=== PATIENT | male | born 1980 | race African-American/Black ===

== ENCOUNTER 2020-04-07 03:08 | Emergency (ER) | payer OTHER ==
[~2020-04-07] VITALS: Ht 177.8 cm; Wt 113.4 kg
--- NOTE | 2020-04-07 03:13 | NUR ---
ED Nurse Note: pt CLARA [employer] 69 in police custody for trespassing. per EMS, pt was agitated and delirious so they gave him 5 of versed. pt presents to ED sedated, appears to be sleeping with [employer] at bedside. officer Frank block # [id number]
--- NOTE | 2020-04-07 03:18 | NUR ---
ED Nurse Note: pt satting at 89% on RA, placed on 2L NC O2
[2020-04-07 03:20] VITALS: BP 112/70
--- NOTE | 2020-04-07 03:42 | NUR ---
ED Nurse Note: pt appears to be asleep in bed, eyes are closed, breathing is even and non-labored. no acute distress is noted at this time. VSS on cardiac exercise physiologist
[2020-04-07 03:45] LABS: BASOPHILS % (AUTO) 0.7 % (0.0-2.0); EOSINOPHILS % (AUTO) 0.2 % (0.0-3.0); HEMATOCRIT 39.4 % (42.0-52.0); HEMOGLOBIN 13.6 G/DL (14.2-18.0); LYMPHOCYTES % (AUTO) 9.4 % (20.0-45.0); MEAN CORPUSCULAR VOLUME 75 FL (80-99); MONOCYTES % (AUTO) 8.8 % (1.0-10.0); NEUTROPHILS % (AUTO) 80.9 % (45.0-75.0); PLATELET COUNT 184 K/UL (150-450); RED BLOOD COUNT 5.23 M/UL (4.70-6.10); RED CELL DISTRIBUTION WIDTH 12.3 % (11.6-14.8); WHITE BLOOD COUNT 8.7 K/UL (4.8-10.8)
[2020-04-07 03:56] LABS: ANION GAP 14 mmol/L (5-15); BLOOD UREA NITROGEN 14 mg/dL (7-18); CALCIUM 8.3 MG/DL (8.5-10.1); CARBON DIOXIDE 23 MMOL/L (21-32); CHLORIDE 107 MMOL/L (98-107); CREATININE 1.6 MG/DL (0.55-1.30); POTASSIUM 3.2 MMOL/L (3.5-5.1); SODIUM 144 MMOL/L (136-145)
[2020-04-07 04:00] LABS: ALANINE AMINOTRANSFERASE 23 U/L (12-78); ALBUMIN 3.6 G/DL (3.4-5.0); ALBUMIN/GLOBULIN RATIO 1.1 (1.0-2.7); ALKALINE PHOSPHATASE 78 U/L (46-116); ASPARTATE AMINO TRANSFERASE 37 U/L (15-37); BILIRUBIN,TOTAL 0.7 MG/DL (0.2-1.0)
--- NOTE | 2020-04-07 04:19 | Emergency Room Report ---
History of Present Illness General Chief Complaint: Medical Clearance Source: EMS, Law Enforcement (Gaston Lomeli MD) Present Illness HPI Unidentified male presents for behavioral evaluation. In police custody. Was combative and agitated and was given Versed by EMS. On arrival patient is sleeping. No signs of distress. No reported SI or HI. Unable to provide any additional history at this time. No other aggravating relieving factors. No other associated symptoms (Gaston Lomeli MD) Allergies: Coded Allergies: UNABLE TO ASSESS (Unverified , 04/07/20) COVID-19 Screening Contact w/high risk pt: No Recent Travel to affected area: No Experienced COVID-19 symptoms?: No COVID-19 Testing performed SLASHER OPERATOR: No (Gaston Lomeli MD) Patient History Past Surgical History: none Pertinent Family History: none Social History: Reports: drug use; Denies: smoking, alcohol use Immunizations: UTD Reviewed Nursing Documentation: PMH: Agreed; PSxH: Agreed (Gaston Lomeli MD) Nursing Documentation-PMH Past Medical History Deferred: Pt Cognitively Impaired (Gaston Lomeli MD) Review of Systems All Other Systems: limited (Gaston Lomeli MD) Physical Exam Vital Signs Date Time Temp Pulse Resp B/P (MAP) Pulse Ox O2 Delivery O2 Flow Rate FiO2 04/07/20 03:08 156 20 190/100 (130) 94 Room Air 04/07/20 03:20 97.1 2.0 Sp02 EP Interpretation: reviewed, normal General Appearance: no apparent distress, GCS 15, non-toxic, lethargic Head: normocephalic Eyes: bilateral eye normal inspection, bilateral eye PERRL ENT: normal ENT inspection Neck: normal inspection Respiratory: normal inspection Cardiovascular #1: normal inspection Gastrointestinal: normal inspection Rectal: deferred Genitourinary: no CVA tenderness Musculoskeletal: normal inspection Neurologic: other - lethargic Psychiatric: other - lethargic Skin: no rash Lymphatic: normal inspection (Gaston Lomeli MD) Medical Decision Making Diagnostic Impression: Primary Impression: Medical clearance for incarceration Additional Impression: Substance abuse Labs Test 04/07/20 03:20 White Blood Count 8.7 K/UL (4.8-10.8) Red Blood Count 5.23 M/UL (4.70-6.10) Hemoglobin 13.6 G/DL (14.2-18.0) Hematocrit 39.4 % (42.0-52.0) Mean Corpuscular Volume 75 FL (80-99) Mean Corpuscular Hemoglobin 26.0 PG (27.0-31.0) Mean Corpuscular Hemoglobin Concent 34.6 G/DL (32.0-36.0) Red Cell Distribution Width 12.3 % (11.6-14.8) Platelet Count 184 K/UL (150-450) Mean Platelet Volume 5.7 FL (6.5-10.1) Neutrophils (%) (Auto) 80.9 % (45.0-75.0) Lymphocytes (%) (Auto) 9.4 % (20.0-45.0) Monocytes (%) (Auto) 8.8 % (1.0-10.0) Eosinophils (%) (Auto) 0.2 % (0.0-3.0) Basophils (%) (Auto) 0.7 % (0.0-2.0) Sodium Level 144 MMOL/L (136-145) Potassium Level 3.2 MMOL/L (3.5-5.1) Chloride Level 107 MMOL/L (98-107) Carbon Dioxide Level 23 MMOL/L (21-32) Anion Gap 14 mmol/L (5-15) Blood Urea Nitrogen 14 mg/dL (7-18) Creatinine 1.6 MG/DL (0.55-1.30) Estimat Glomerular Filtration Rate 55.8 mL/min (>60) Glucose Level 109 MG/DL (74-106) Calcium Level 8.3 MG/DL (8.5-10.1) Total Bilirubin 0.7 MG/DL (0.2-1.0) Aspartate Amino Transf (AST/SGOT) 37 U/L (15-37) Alanine Aminotransferase (ALT/SGPT) 23 U/L (12-78) Alkaline Phosphatase 78 U/L (46-116) Total Protein 7.0 G/DL (6.4-8.2) Albumin 3.6 G/DL (3.4-5.0) Globulin 3.4 g/dL Albumin/Globulin Ratio 1.1 (1.0-2.7) Salicylates Level 2.2 ug/mL (2.8-20) Urine Opiates Screen Negative (NEGATIVE) Acetaminophen Level < 3 MCG/ML (10-30) Urine Barbiturates Screen Negative (NEGATIVE) Phencyclidine (PCP) Screen Negative (NEGATIVE) Urine Amphetamines Screen Positive (NEGATIVE) Urine Benzodiazepines Screen Positive (NEGATIVE) Urine Cocaine Screen Negative (NEGATIVE) Urine Marijuana (THC) Screen Negative (NEGATIVE) Serum Alcohol 57 mg/dL (Gaston Lomeli MD) ER Course 39-year-old male history of polysubstance use presents with intoxicated state, patient was signed out to me pending discharge, law enforcement has decided not to place patient in custody. Reevaluation at 12:19 PM patient is no longer intoxicated, Patient can be discharged (Adrián Mackey MD) Last Vital Signs Date Time Temp Pulse Resp B/P (MAP) Pulse Ox O2 Delivery O2 Flow Rate FiO2 04/07/20 03:20 97.1 122 15 112/70 95 Nasal Cannula 2.0 Status: improved (Gaston Lomeli MD) Disposition: HOME, SELF-CARE Condition: Stable Referrals: NOT CHOSEN IPA/,REFERRING (PCP) [facility] Patient Instructions: Stimulant Use Disorder-Amphetamines, Stimulant Use Disorder-Cocaine, Stimulant Use Disorder-Methamphetamines Additional Instructions: The patient was provided with discharge instructions, notified to follow-up with a primary care doctor and or specialist in the next 24-48 hours, and to return to the ED if they have worsening of their symptoms. Please note that this report is being documented using [employer] technology. This can lead to erroneous entry secondary to incorrect interpretation by the dictating instrument. Gaston Lomeli MD April 07, 2020 04:19 Adrián Mackey MD April 07, 2020 12:19
--- NOTE | 2020-04-07 04:41 | NUR ---
HAND-OFF: Report given to Yandel Liao RN.
--- NOTE | 2020-04-07 04:47 | NUR ---
ED Nurse Note: PER [employer], PATIENT IS NO LONGER IN CUSTUDY. PER [employer], PATIENT WAS CITED. PT IS CURRENTLY SLEEPING. VSS.
--- NOTE | 2020-04-07 04:47 | NUR ---
ED Nurse Note: RECEIVED REPORT FROM MAKEDA TIAN
--- NOTE | 2020-04-07 04:47 | NUR ---
ED Nurse Note: 5
--- NOTE | 2020-04-07 06:45 | NUR ---
ED Nurse Note: Got report from Yandel NORIEGA RN. Patient is resting with eyes close, NAD noted.
[2020-04-07 12:29] VITALS: BP 190/100
--- NOTE | 2020-04-07 12:30 | NUR ---
ER DISCHARGE NOTE: Patient is cleared to be discharged per ERMD, pt is aox4, on room air, with stable vital signs. pt was given dc and prescription instructions, pt was able to verbalize understanding, pt id band and iv site removed without complications. pt is able to ambulate with steady gait. pt took all belongings.
== END 2020-04-07 12:30 | disposition home or self-care (01) ==
LOC: EDBD 03:08 → EMR 03:21
DX: F19.10 Other psychoactive substance abuse, uncomplicated (principal)
CPT/HCPCS: 36415; 80053; 80307; 85025; 96360; G0480; G0481; Z7502; 99284